=== PATIENT | female | born 1985 | race Caucasian/White ===

== ENCOUNTER → 2020-05-08 | Outpatient (CLI) | payer OTHER ==
[~2020-05-08] MED LIST: CARAFATE1 G1 PO; ERYTHROMYCIN250 M2 PO; GABAPENTIN800 MG PO; LIBRAX CAPSULE1 EACH PO; OMEPRAZOLE40 MG PO; PROTONIX40 MG PO; Phenergan25 MG PO; RANITIDINE PO; ZOFRAN4 MG PO
== END | disposition home or self-care (01) ==
LOC: COVID19 02:15
DX: Z01.818 Encounter for other preprocedural examination (principal); Z11.59 Encounter for screening for other viral diseases

== ENCOUNTER → 2020-05-14 | Day surgery (SDC) | payer OTHER ==
[~2020-05-14] VITALS: Ht 170.1 cm; Wt 119.3 kg
[2020-05-14 10:09] VITALS: BP 147/84
[2020-05-14 12:36] VITALS: BP 137/76
[2020-05-14 12:51] VITALS: BP 124/82
[2020-05-14 13:06] VITALS: BP 120/54
--- NOTE | 2020-05-14 13:23 | NUR ---
PT IS GETTING DRESSED NOW FOR DISCHARGE. MEDIPORT FLUSHED WITH EASE AND HAD GREAT BLOOD RETURN. MEDIPORT REMOVED. VSS.
== END | disposition home or self-care (01) ==
LOC: SDC 05-11 13:15
DX: K31.84 Gastroparesis (principal); K94.23 Gastrostomy malfunction; K21.9 Gastro-esophageal reflux disease without esophagitis; G43.909 Migraine, unspecified, not intractable, without status migrainosus; Z88.8 Allergy status to other drugs, medicaments and biological substances; Z98.890 Other specified postprocedural states; Z79.899 Other long term (current) drug therapy

== ENCOUNTER → 2021-05-17 | Outpatient (CLI) | payer MEDICARE ==
[~2021-05-17] MED LIST changes: +BENTYL20 MG/2 ML IM; +HIPREX1 GM PO; +NATURE'S BLEND F1 MG PO; +NORVASC10 MG PO
== END | disposition home or self-care (01) ==
LOC: LAB 14:53
PROVIDERS: ATTEND Surgery
DX: Z01.812 Encounter for preprocedural laboratory examination (principal); Z20.822 Contact with and (suspected) exposure to COVID-19

== ENCOUNTER → 2021-05-20 | Day surgery (SDC) | payer MEDICARE ==
[~2021-05-20] VITALS: Ht 15453 cm; Wt 117.9 kg
[2021-05-20] VITALS (7 sets, daily range): BP systolic 90–148; BP diastolic 68–79
== END | disposition home or self-care (01) ==
LOC: SDC 05-17 14:45
PROVIDERS: ATTEND Surgery
DX: K94.23 Gastrostomy malfunction (principal); G43.909 Migraine, unspecified, not intractable, without status migrainosus; I10 Essential (primary) hypertension; Z98.1 Arthrodesis status; Z98.890 Other specified postprocedural states; Z79.899 Other long term (current) drug therapy

== ENCOUNTER → 2021-07-15 | Day surgery (SDC) | payer MEDICARE ==
[~2021-07-15] VITALS: Ht 170.1 cm; Wt 120.2 kg
[~2021-07-15] MED LIST changes: +'zithromax250 MG PO; +PERCOCET 5-3251 EACH PO
[2021-07-15 08:11] VITALS: BP 126/84
[2021-07-15 09:30] VITALS: BP 101/64
[2021-07-15 09:45] VITALS: BP 103/75
[2021-07-15 10:00] VITALS: BP 114/85
[2021-07-15 10:15] VITALS: BP 106/64
[2021-07-15 10:35] VITALS: BP 106/55
== END | disposition home or self-care (01) ==
LOC: SDC 07-12 09:30
PROVIDERS: ATTEND Surgery
DX: Z45.2 Encounter for adjustment and management of vascular access device (principal); K31.84 Gastroparesis; K21.9 Gastro-esophageal reflux disease without esophagitis; I10 Essential (primary) hypertension; G43.909 Migraine, unspecified, not intractable, without status migrainosus; Z98.890 Other specified postprocedural states; Z79.899 Other long term (current) drug therapy; Z20.822 Contact with and (suspected) exposure to COVID-19

== ENCOUNTER → 2021-10-08 | Day surgery (SDC) | payer MEDICARE ==
[~2021-10-08] VITALS: Ht 170.1 cm; Wt 122.0 kg
[~2021-10-08] MED LIST changes: +SEPTDS PO
[2021-10-08 07:58] VITALS: BP 130/93
[2021-10-08 09:00] VITALS: BP 113/72
[2021-10-08 09:09] VITALS: BP 121/76
[2021-10-08 09:30] VITALS: BP 118/67
[2021-10-08 09:41] VITALS: BP 116/72
[2021-10-08 09:57] VITALS: BP 102/63
== END | disposition home or self-care (01) ==
LOC: SDC 10-04 12:15
PROVIDERS: ATTEND Surgery
DX: S31.109A Unspecified open wound of abdominal wall, unspecified quadrant without penetration into peritoneal cavity, initial encounter (principal); K94.23 Gastrostomy malfunction; I10 Essential (primary) hypertension; K21.9 Gastro-esophageal reflux disease without esophagitis; K31.84 Gastroparesis; X58.XXXA Exposure to other specified factors, initial encounter; Y93.89 Activity, other specified; Y92.89 Other specified places as the place of occurrence of the external cause; Y99.8 Other external cause status

== ENCOUNTER → 2021-11-29 | Outpatient (CLI) | payer OTHER, MEDICARE ==
[~2021-11-29] VITALS: Ht 170.1 cm; Wt 122.0 kg
[~2021-11-29] MED LIST changes: -RANITIDINE PO; +ZANTAC PO
== END ==
LOC: SDC 11-15 12:15 → LAB 00:01 → SDC 00:40 → EDSTATUS 12-02 09:30
PROVIDERS: ATTEND Surgery
DX: Z01.812 Encounter for preprocedural laboratory examination (principal); Z20.822 Contact with and (suspected) exposure to COVID-19

== ENCOUNTER → 2021-12-13 | Day surgery (SDC) | payer OTHER, MEDICARE ==
[2021-12-13] VITALS (8 sets, daily range): BP systolic 114–134; BP diastolic 64–85
[~2021-12-13] VITALS: Ht 170.1 cm; Wt 122.0 kg
== END | disposition home or self-care (01) ==
LOC: SDC 11-29 09:30
PROVIDERS: ATTEND Surgery
DX: T82.9XXA Unspecified complication of cardiac and vascular prosthetic device, implant and graft, initial encounter (principal); K21.9 Gastro-esophageal reflux disease without esophagitis; I10 Essential (primary) hypertension; Z98.890 Other specified postprocedural states; Z88.8 Allergy status to other drugs, medicaments and biological substances; Z90.49 Acquired absence of other specified parts of digestive tract; Z98.84 Bariatric surgery status; Z79.899 Other long term (current) drug therapy; Z20.822 Contact with and (suspected) exposure to COVID-19

== ENCOUNTER → 2022-02-24 | Day surgery (SDC) | payer OTHER, MEDICARE ==
[~2022-02-24] VITALS: Ht 170.1 cm; Wt 122.5 kg
[~2022-02-24] MED LIST changes: +ELIQUIS5 M1 PO
[2022-02-24 08:42] VITALS: BP 146/99
[2022-02-24 09:52] VITALS: BP 140/93
[2022-02-24 10:05] VITALS: BP 152/98
[2022-02-24 10:20] VITALS: BP 130/90
== END | disposition home or self-care (01) ==
LOC: SDC 01-20 09:30
PROVIDERS: ATTEND Surgery
DX: K31.84 Gastroparesis (principal); K21.9 Gastro-esophageal reflux disease without esophagitis; I10 Essential (primary) hypertension; Z79.899 Other long term (current) drug therapy; Z98.890 Other specified postprocedural states

== ENCOUNTER → 2022-04-08 | Day surgery (SDC) | payer OTHER, MEDICARE ==
[~2022-04-08] VITALS: Ht 170.1 cm; Wt 122.5 kg
[2022-04-08 11:47] VITALS: BP 158/93
[2022-04-08 14:35] VITALS: BP 140/88
[2022-04-08 14:50] VITALS: BP 119/93
[2022-04-08 15:05] VITALS: BP 128/88
[2022-04-08 15:20] VITALS: BP 130/84
== END | disposition home or self-care (01) ==
LOC: SDC 04-05 10:15
PROVIDERS: ATTEND Surgery
DX: Z45.2 Encounter for adjustment and management of vascular access device (principal); I10 Essential (primary) hypertension; K21.9 Gastro-esophageal reflux disease without esophagitis; G43.909 Migraine, unspecified, not intractable, without status migrainosus; Z98.1 Arthrodesis status; K31.84 Gastroparesis; I87.2 Venous insufficiency (chronic) (peripheral); Z88.8 Allergy status to other drugs, medicaments and biological substances; Z79.899 Other long term (current) drug therapy; Z98.890 Other specified postprocedural states

== ENCOUNTER → 2022-10-10 | Day surgery (SDC) | payer OTHER, MEDICARE ==
[~2022-10-10] VITALS: Ht 170.1 cm; Wt 115.2 kg
[2022-10-10 08:55] VITALS: BP 155/81
[2022-10-10 09:45] VITALS: BP 111/70
[2022-10-10 10:00] VITALS: BP 125/79
[2022-10-10 10:15] VITALS: BP 135/73
== END | disposition home or self-care (01) ==
LOC: SDC 10-06 12:30
PROVIDERS: ATTEND Surgery
DX: K94.23 Gastrostomy malfunction (principal); K31.84 Gastroparesis; K21.9 Gastro-esophageal reflux disease without esophagitis; I10 Essential (primary) hypertension; Z79.899 Other long term (current) drug therapy

== ENCOUNTER → 2023-01-26 | Day surgery (SDC) | payer OTHER, MEDICARE ==
[~2023-01-26] VITALS: Ht 170.1 cm; Wt 117.9 kg
[2023-01-26 11:42] VITALS: BP 141/98
[2023-01-26 12:57] VITALS: BP 132/92
[2023-01-26 13:12] VITALS: BP 111/68
[2023-01-26 13:27] VITALS: BP 110/68
== END | disposition home or self-care (01) ==
LOC: SDC 01-23 10:15
PROVIDERS: ATTEND Surgery
DX: K31.84 Gastroparesis (principal); K94.23 Gastrostomy malfunction; K21.9 Gastro-esophageal reflux disease without esophagitis; I10 Essential (primary) hypertension; G43.909 Migraine, unspecified, not intractable, without status migrainosus; Z90.49 Acquired absence of other specified parts of digestive tract; Z79.899 Other long term (current) drug therapy

== ENCOUNTER → 2023-06-01 | Day surgery (SDC) | payer BC, MEDICARE ==
[~2023-06-01] VITALS: Ht 170.1 cm; Wt 115.2 kg
[2023-06-01 10:40] VITALS: BP 110/72
[2023-06-01 11:20] VITALS: BP 119/88
[2023-06-01 11:35] VITALS: BP 108/62
[2023-06-01 11:50] VITALS: BP 99/66
== END ==
LOC: SDC 05-29 14:45
PROVIDERS: ATTEND Surgery
DX: K31.84 Gastroparesis (principal); T85.518A Breakdown (mechanical) of other gastrointestinal prosthetic devices, implants and grafts, initial encounter; E46 Unspecified protein-calorie malnutrition; E86.0 Dehydration; G43.909 Migraine, unspecified, not intractable, without status migrainosus; N32.81 Overactive bladder; K51.90 Ulcerative colitis, unspecified, without complications; Z86.718 Personal history of other venous thrombosis and embolism; Z79.899 Other long term (current) drug therapy; Z98.890 Other specified postprocedural states; X58.XXXA Exposure to other specified factors, initial encounter